=== PATIENT | female | born 1940 | race Hispanic/Latino ===

== ENCOUNTER 2018-06-20 23:06 | Emergency (ER) | payer SELFPAY ==
[2018-06-20 23:27] VITALS: BMI 107.6
[2018-06-20 23:33] VITALS: RESP 18
--- NOTE | 2018-06-20 23:40 | ED PDOC ---
Arrival/HPI - General Chief Complaint: Abnormal Skin Integrity Historian: Patient - History of Present Illness Narrative History of Present Illness (Text): 06/20/18 23:33 A 78 year old female presents to the emergency department brought in by EMS s/p fall and ETOH intoxication. Patient states she has a laceration to her forehead from the fall. Patient denies any chest pain, dizziness, or any other complaints. Time/Duration: Other (earlier tonight) Symptom Onset: Sudden Symptom Course: Unchanged Activities at Onset: Significant Context: Home Past Medical History - Provider Review Nursing Documentation Reviewed: Yes - Infectious Disease Hx of Infectious Diseases: None - Reproductive Menopause: No - Psychiatric Hx Substance Use: No Family/Social History - Physician Review Nursing Documentation Reviewed: Yes Family/Social History: No Known Family HX Smoking Status: Never Smoked Hx Alcohol Use: Yes Hx Substance Use: No Allergies/Home Meds Allergies/Adverse Reactions: Allergies No Known Allergies Allergy (Verified 06/20/18 23:32) Home Medications: Home Meds Medication Instructions Recorded Confirmed Unobtainable 06/20/18 06/20/18 Review of Systems - Physician Review All systems were reviewed & negative as marked: Yes - Review of Systems Respiratory: absent: SOB Neurological: absent: Dizziness Physical Exam - Physical Exam Narrative Physical Exam (Text): 06/20/18 23:36 Constitutional: No acute distress. Head: Normocephalic. Hematoma to left forehead. No tenderness of nose, maxilla, jaw. Eyes: PERRL. ENT: Moist mucous membranes. Neck: No midline tenderness. Cardiovascular: Regular rate. Chest: No tenderness. Respiratory: Clear to auscultation bilaterally. GI: Soft. Nontender. Nondistended. Back: No CVA tenderness. No midline tenderness. Musculoskeletal: No tenderness or swelling of extremities. Full ROM x4 Skin: No rash. 2 cm laceration to left forehead, continuously bleeding. Neurologic: Alert, no focal deficit. Vital Signs Reviewed: Yes Temperature: Febrile Blood Pressure: Normal Pulse: Tachycardic Respiratory Rate: Normal Medical Decision Making ED Course and Treatment: 06/20/18 23:40 Impression: 78 year old female presenting to the emergency room s/p fall and ETOH intoxication. Plan: -- CT of maxillofacial -- Head CT -- Reassess and disposition Prior Visits: Notes and results from previous visits were reviewed. Progress Notes: 06/20/18 23:40 PROCEDURE: LACERATION REPAIR Performed immediately by the emergency provider Location: Left forehead Length: 2 cm Description: no foreign bodies. Distal CMS: Normal. No deficits. Neurovascularly intact. Anesthesia: none Preparation: The wound was cleaned with NS and [place]. The area was prepped and draped in the usual sterile fashion. Exploration: The wound was explored and no foreign bodies were found. Procedure: The wound was closed with 60 nylon. There was good approximation. In total, 4 sutures were used. Post-Procedure: Good closure and hemostasis. The patient tolerated the procedure well and there were no complications. CSM remains intact. Post procedure dressing applied. 06/21/18 02:41 Procedure: Head CT Dictator: Dr. Gary Borrego M.D. Impression: Normal unenhanced CT scan of the brain. Left frontal subgaleal soft tissue hematoma. Patient observed, was steady on feet. - RAD Interpretation Radiology Orders: 06/20/18 23:28 HEAD W/O CONTRAST [CT] Stat MAXILLOFACIAL W/O CONTRAST [CT] Stat - Scribe Statement The provider has reviewed the documentation as recorded by the Scribe Lenore Cruz All medical record entries made by the Scribe were at my direction and personally dictated by me. I have reviewed the chart and agree that the record accurately reflects my personal performance of the history, physical exam, medical decision making, and the department course for this patient. I have also personally directed, reviewed, and agree with the discharge instructions and disposition. Disposition/Present on Arrival - Present on Arrival Any Indicators Present on Arrival: No History of DVT/PE: No History of Uncontrolled Diabetes: No Urinary Catheter: No History of Decub. Ulcer: No History Surgical Site Infection Following: None - Disposition Have Diagnosis and Disposition been Completed?: Yes Diagnosis: Laceration Disposition: HOME/ ROUTINE Disposition Time: 02:47 Patient Plan: Discharge Patient Problems: Current Active Problems Problem Status Onset Laceration Acute Condition: GOOD Discharge Instructions (ExitCare): Laceration Repair With Stitches (DC) Additional Instructions: Have your stitches removed in 7 days. Referrals: Kanika Hernandez DO [Primary Care Provider] - Follow up with primary Forms: [employer] (Latvian)
[2018-06-21 03:50] VITALS: BP 125/77; PULSE 84; TEMP 98.9; O2SAT 97
--- NOTE | 2018-06-21 13:49 | CT ---
Date of service: 06/21/2018 PROCEDURE: CT HEAD WITHOUT CONTRAST. HISTORY: fall, head injury COMPARISON: None available. TECHNIQUE: Axial computed tomography images were obtained through the head/brain without intravenous contrast. Radiation dose: Total exam DLP = 893.69 mGy-cm. This CT exam was performed using one or more of the following dose reduction techniques: Automated exposure control, adjustment of the mA and/or kV according to patient size, and/or use of iterative reconstruction technique. FINDINGS: Examination is compromised by extensive motion artifacts at the inferior intracranial space. HEMORRHAGE: No definite intracranial hemorrhage. BRAIN: Good corticomedullary differentiation is seen. Proportional, diffuse expansion of the ventriculosulcal and cisternal spaces is appreciated with limited white matter lucency compatible with diffuse cerebral atrophy and chronic microangiopathy. No suspicious extra-axial fluid collection is identified and the midline brain anatomy appears grossly nonfocal as imaged. There is no mass effect throughout. VENTRICLES: Unremarkable. No hydrocephalus. CALVARIUM: No destructive bony lesion or displaced fracture identified including through the skullbase. A mild left frontal scalp hematoma is identified nevertheless. PARANASAL SINUSES: Unremarkable as visualized. No significant inflammatory changes. MASTOID AIR CELLS: Unremarkable as visualized. No inflammatory changes. OTHER FINDINGS: None. IMPRESSION: Mild age related neuro degenerative changes are identified without definite acute intracranial findings or fracture evident grossly. Motion artifacts distort the evaluation the inferior intracranial space significantly. Preliminary report provided by Jacki, 06/21/2018, 2:25 a.m..
== END 2018-06-21 03:35 | disposition home or self-care (01) ==
LOC: ED 23:06
DX: S01.81XA Laceration without foreign body of other part of head, initial encounter (principal); W19.XXXA Unspecified fall, initial encounter